=== PATIENT | female | born 1985 | race Caucasian/White ===

== ENCOUNTER → 2017-04-25 | Outpatient (CLI) | payer OTHER | LOC: FIMAGING 08:08 | PROVIDERS: ATTEND Advanced Practice Midwife | DX: Z34.82 Encounter for supervision of other normal pregnancy, second trimester (principal); Z3A.19 19 weeks gestation of pregnancy ==

== ENCOUNTER → 2017-05-30 | Outpatient (CLI) | payer OTHER | LOC: FIMAGING 09:48 | PROVIDERS: ATTEND Advanced Practice Midwife | DX: O44.02 Complete placenta previa NOS or without hemorrhage, second trimester (principal); Z3A.24 24 weeks gestation of pregnancy ==

== ENCOUNTER 2017-09-07 05:36 | Inpatient (IN) | payer OTHER ==
--- NOTE | 2017-09-07 00:11 | GHP ---
[f rep st] PREOP HISTORY AND PHYSICAL DATE OF ADMISSION: 09/07/2017 Patient slated for surgery on 09/07/2017, on the obstetric service. PREOPERATIVE NOTE: Patient is a 31-year-old G2, P1, who will be 39 weeks' gestation with an estimated due date of 09/14/2017, who presents for a scheduled repeat section. The patient had a history of a previous section and declines trial of labor. The patient has been counseled as to the risks and benefits of repeat and has signed the consent form. The patient is counseled as to the option also of doing the tubal ligation or salpingectomies for cancer risk reduction; however, at the time of preop, declines adding that to the consent form. The patient reports having good movement. Denies any contractions or bleeding or leakage of fluid. The patient has occasionally had headaches, but denies any visual changes or nausea, vomiting, or right upper quadrant pain. The patient's first was complicated by gestational hypertension, and the patient has had some borderline blood pressures in the last month. The patient has been screening blood pressures at home and has had some high 130s over high 80s. The patient had 1 blood pressure 158/92; however, a repeat was improved. The patient has had trace to negative proteinuria on urine dips and had a baseline 24-hour urine at the beginning of that showed slight elevation at 312 mg. The patient has been seen by [facility] since 8 weeks' gestation. 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 The patient was noted to have a placenta previa noted at 18 weeks. This was persistent at 23 weeks, but showed clearance at 31 weeks. The estimated weight was 39th percentile, and this dropped to the 21st percentile. The patient had an elevated 1-hour Glucola, but the 3-hour GTT was normal. LABS: Include maternal blood type is A positive with negative antibody screen. RPR nonreactive. Rubella immune. Hepatitis B surface antigen negative. HIV negative. Initial hematocrit was 39% which dropped to 34 % in mid , and the patient was advised to be on iron support. Urinalysis and culture were negative. Patient declined having Pap smear and gonorrhea and chlamydia testing done. The patient also denied first-trimester genetic testing as well as MSAFP. Again, the 1-hour Glucola was elevated, but the 3-hour GTT was normal. GBS testing at 36 weeks was negative. Standard panel for genetic tests as well as cystic fibrosis, SMA, and fragile X all were declined. PAST MEDICAL HISTORY: Patient does have abnormal Pap smears in the past. In 2010, it was abnormal, and the patient did not proceed with colposcopy, and the Pap smears have been normal since then. The patient also has a history of pyelonephritis at the age of 17. PAST SURGICAL HISTORY: odontectomy as teen, section in 2012. PAST OBSTETRIC HISTORY: In January 2013, viable male at 6 pounds 3 ounces, delivered at 36 weeks by section under spinal anesthesia. The patient reports that at 32 weeks in that , she developed -induced hypertension, and the plan was to deliver early. The patient does not recall the reasons behind having the primary section. During the hospital stay, the patient remembers being on magnesium sulfate. ALLERGIES: The patient is allergic to Ceclor causing a rash as a child. The patient reports she has been on cephalosporin as an adult with no problems. CURRENT MEDICATIONS: vitamins with iron. SOCIAL HISTORY: The patient is , lives with her and their son. The patient works in [employer] department. The patient is a nonsmoker. No alcohol or drug use. PHYSICAL EXAMINATION: GENERAL: At the time of the admission, the patient is a well-developed, well-nourished white female in no physical distress. VITAL SIGNS: The patient is clinically afebrile. Blood pressure is 138/74 with negative protein and glucose in the urine. The patient's weight 216 pounds. LUNGS: Clear to auscultation bilaterally. CARDIOVASCULAR: Regular rate and rhythm. NECK: No thyromegaly noted. ABDOMEN: Fundus measuring at 16 cm. heart tones are reassuring in the 150s. PELVIS: Deferred. EXTREMITIES: mild pedal edema. ASSESSMENT: Intrauterine at 39 weeks' gestation. History of a section and declines trial of labor. History of delivery due to gestational hypertension, and patient is showing some borderline BPs here near term. GBS culture was negative. PLAN: Will proceed with repeat section on the morning of 09/07/2017. Consent form has been signed. At this time, patient declining removal of fallopian tubes. Patient will receive preoperative antibiotics and have SCDs on her lower extremities for DVT prophylaxis. /[id number]/MODL MTDD
[2017-09-07] MEDS ORDERED: LR 500 ML IV ONE (06:24)
[2017-09-07] MEDS ORDERED: CLINDAMYCIN 900 MG/DEXTROSE 50 ML IV ONE (06:24)
[2017-09-07] MEDS ORDERED: CITRIC ACID/SODIUM CITRATE 30 ML UDCUP PO ONE (06:24)
[2017-09-07] MEDS ORDERED: LR 1,000 ML IV SCH (06:24)
[2017-09-07 06:36] LABS: PLATELET COUNT 202 10^3/uL (150-400)
--- NOTE | 2017-09-07 07:22 | PREANESOB ---
Obstetric Pre-Anesthesia Info - General Info Proposed Procedure: Repeat C Section : 2 Para: 0 DINORA: 09/14/17 Gestational Age: 39 week(s) and 0 day(s) - Info Status: Full Term Monitors: External FHR Baseline (bpm): 130 FHR Pattern: Reassuring - Labor Status Magnesium Sulfate in Use: No Indications for Current Section: Elective/Repeat Labor Epidural: No Anesthesia Allergies/Adverse Reactions: Allergy/AdvReac Type Severity Reaction Status Date / Time cefaclor [From [facility]] Allergy Verified 08/30/17 17:54 Visit Medications: Generic Name Dose Route Start Last Admin Trade Name Freq PRN Reason Stop Dose Admin Lactated Ringer's 1,000 mls @ 125 mls/hr 09/07/17 06:24 09/07/17 06:46 Lr IV 09/08/17 06:23 1,000 mls CONT ABDIRASHID Administration Discontinued Medications Generic Name Dose Route Start Last Admin Trade Name Freq PRN Reason Stop Dose Admin Citric Acid/Sodium Citrate 30 ml 09/07/17 06:24 Bicitra PO 09/07/17 06:25 ONCALL ONE Clindamycin Phosphate/Dextrose 50 mls @ 100 mls/hr 09/07/17 06:24 Cleocin 900 Mg (Premix) IV 09/07/17 06:53 ONCALL ONE Protocol Lactated Ringer's 500 mls @ 0 mls/hr 09/07/17 06:24 Lr IV 09/07/17 06:25 ONCE ONE As Directed - Anesthesia History Response to Local Anesthetics: Normal Anesthesia & Operative History: No Prior Problems Family Anesthesia History: Negative - Social History Substance Use/Abuse: Denies - Vital Signs Latest Vital Signs (Nursing): Temp Pulse Resp BP Pulse Ox 36.8 C 102 H 18 147/96 H 96 09/07/17 06:24 09/07/17 06:24 09/07/17 06:24 09/07/17 06:49 09/07/17 06:24 Blood Pressure: 146/94 Heart Rate: 100 Height/Weight (Nursing): Height 165.1 cm Weight 97.976 kg - Focused Exam Neck exam: FROM Mallampati Score: Class 1 Mouth exam: normal dental/mouth exam Pulmonary: no respiratory distress Cardiovascular: regular rate and rhythym Labs: 09/07/17 06:20 - Plan Consent Signed and on Chart: Yes
[2017-09-07] MEDS ORDERED: MISOPROSTOL 200 MCG TAB ONE (07:30)
[2017-09-07] MEDS ORDERED: OXYTOCIN 10 UNIT/ML VIAL ONE (07:30)
[2017-09-07] MEDS ORDERED: fentaNYL 100 MCG/2 ML INJ ONE (07:36)
[2017-09-07] MEDS ORDERED: morphINE PF 5 MG/10 ML INJ ONE (07:36)
--- NOTE | 2017-09-07 07:40 | PDHPUP ---
History & Physical Update H&P update statement: This history and physical update is based on an assessment of the patient which was completed after admission or registration (within 24 hours), but prior to the surgery/procedure. H&P update: changes noted (BPs have been elevated upon arrival, improving. 150s /100s but now 140s/90s. no JOHNSON or N/V, or RUQ pain. PIH labs normal. Pt dx now with PIH)
[2017-09-07] MEDS ORDERED: PHENYLEPHRINE HCL 100 MCG/ML SYR ONE (08:21)
[2017-09-07] MEDS ORDERED: DEXAMETHASONE 4 MG/ML VIAL ONE ×2 (08:22)
[2017-09-07] MEDS ORDERED: ONDANSETRON 4 MG/2 ML VIAL ONE (08:22)
[2017-09-07] MEDS ORDERED: OXYTOCIN 100 UNITS/10 ML VIAL ONE (08:22)
[2017-09-07] MEDS ORDERED: MAGNESIUM HYDROXIDE 30 ML UDCUP PO PRN (09:43)
[2017-09-07] MEDS ORDERED: BISACODYL 10 MG SUPP PR PRN (09:43)
[2017-09-07] MEDS ORDERED: LACTULOSE 20 GM/30 ML UDCUP PO PRN (09:43)
--- NOTE | 2017-09-07 09:47 | OBDEL ---
Info Type: Repeat Presentation at Delivery: Vertex L&D Analgesia/Anesthesia Type: Spinal (with duramorph) GBS+: No Intrapartum Medications: Generic Name Dose Route Start Last Admin Trade Name Freq PRN Reason Stop Dose Admin Lactated Ringer's 1,000 mls @ 125 mls/hr 09/07/17 06:24 09/07/17 06:46 Lr IV 09/08/17 06:23 1,000 mls CONT ABDIRASHID Administration Discontinued Medications Generic Name Dose Route Start Last Admin Trade Name Freq PRN Reason Stop Dose Admin Clindamycin Phosphate/Dextrose 50 mls @ 100 mls/hr 09/07/17 06:24 09/07/17 07 :31 Cleocin 900 Mg (Premix) IV 09/07/17 06:53 50 mls ONCALL ONE Administration Protocol - Infant Care Provider Information Systems Security Developer/CABINETMAKER SUPERVISOR: Amy Nunn Indications for Delivery: Elective, Gestational Hypertension Operative Report - Delivery Pre-op Diagnoses: IUP at 39 wks, PCS declines TRUID, undesired fertility Post-op Diagnoses: same, delivered History of Prior Section: Yes Number of Prior Sections: 1 Indications for Prior Section: Other (Specify) (gestation hypertension) Indications for Current Section: Elective/Repeat Procedure: Scheduled, Other (Specify) (bilateral salpingectomies) Surgeon: Domi Nick Worm Packer: Noe Oshea Anesthesiologist: Yusuf Sandhu Complications: None Findings: normal ut, tubes and ovaries - salpingectomies with 4 ties on left and 3 on right. - good hemostasis after uterine replacement. good uterine tone after delivery. clear fluid. placenta removed intact. vigorous baby after delivery with delay of cord clamp for 1 min. 3 F8 on second layer of uterus for good hemostasis. 2 F8 on rectus for 2-3 cm diastasis. Specimen(s)/Path: Fallopian Tube(s) IV Fluid (ml): 2,800 EBL: 800 [place] Data DINORA: 09/14/17 Gestational Age: 39 week(s) and 0 day(s) [place] Delivery Date: 09/07/17 Delivery Time: 08:39 Sex of : Female Score (1 Min): 8 Score (5 Min): 9 ICD10 Worksheet Patient Problems: Problems Problem Status Onset Status post bilateral salpingectomy Acute S/P repeat low transverse Acute
[2017-09-07] MEDS ORDERED: PHENYLEPHRINE HCL 100 MCG/ML SYR IVP PRN (10:00)
[2017-09-07] MEDS ORDERED: fentaNYL 100 MCG/2 ML INJ IVP PRN (10:00)
--- NOTE | 2017-09-07 10:00 | POSTANESTH ---
Post Anesthetic Evaluation Cardiovascular Status: Normal, Stable Respiratory Status: Normal, Stable Level of Consciousness/Mental Status: Can Participate in Eval Pain Control: Adequate, Prn Tx Ordered Nausea/Vomiting Control: Adequate, Prn Tx Ordered Complications Possibly Related to Anesthesia: None Noted
[2017-09-07] MEDS ORDERED: ONDANSETRON 4 MG/2 ML VIAL IVP PRN (10:01)
[2017-09-07] MEDS ORDERED: NALOXONE HCL 0.4 MG/ML INJ IVP PRN (10:01)
[2017-09-07] MEDS: KETOROLAC 30 MG/1 ML SDV IVP SCH ×2 (14:36→20:34)
--- NOTE | 2017-09-07 18:39 | OBPP ---
Progress Note Assessment/Plan: Assessment: POD 0 s/p RCS, BS gest HTN Plan: Routine care 09/07/17 18:35 Subjective/ Course: 09/07/17 18:36 Pt doing well. Pain controlled with toradol. bld is light. has been OOB once and dayana fine. dayana liquids well. Baby has tried to latch well. Objective: 09/07/17 06:20 09/07/17 07:10 Patient ABO/Rh A POSITIVE 09/07/17 06:20 Uric Acid 3.9 mg/dL (2.5-6.8) 09/07/17 07:10 Total Bilirubin 0.5 mg/dL (0.1-1.4) 09/07/17 07:10 Conjugated Bilirubin 0.2 mg/dL (0.0-0.5) 09/07/17 07:10 Unconjugated Bilirubin 0.3 mg/dL (0.0-1.1) 09/07/17 07:10 AST 15 IU/L (14-46) 09/07/17 07:10 ALT 21 IU/L (9-52) 09/07/17 07:10 Lactate Dehydrogenase 343 IU/L (313-618) 09/07/17 07:10 Temp Pulse Resp BP Pulse Ox 36.7 C 78 18 128/77 H 96 09/07/17 15:30 09/07/17 15:30 09/07/17 16:30 09/07/17 15:30 09/07/17 18:00 Uterine Position/Fundal Height: Umbilicus -1 Uterine Tone: Firm Physical Exam - Physical Exam Abdomen: non-tender (approp post op tenderness), soft, dressing (CDI) Extremities: non-tender, pedal edema (mild) Skin: normal color, warm/dry Neuro/Psych: alert, normal mood/affect
[2017-09-07] MEDS: SENNOSIDES/DOCUSATE SODIUM TAB PO SCH (20:34)
[2017-09-08] MEDS: KETOROLAC 30 MG/1 ML SDV IVP SCH ×2 (02:28→10:43)
[2017-09-08] MEDS: IBUPROFEN 600 MG TAB PO PRN ×3 (08:57→23:04)
[2017-09-08] MEDS: SENNOSIDES/DOCUSATE SODIUM TAB PO SCH ×2 (08:58→19:54)
[2017-09-08] MEDS ORDERED: KETOROLAC 30 MG/1 ML SDV IVP SCH (09:00)
--- NOTE | 2017-09-08 13:02 | OBPP ---
Progress Note Assessment/Plan: Assessment: POD1 s/p scheduled RLTCS and BS. Routine cares, doing great. Likely home tomorrow. Rh pos, Rubella immune. JM Subjective/ Course: 09/07/17 18:36 Pt doing well. Pain controlled with toradol. bld is light. has been OOB once and dayana fine. dayana liquids well. Baby has tried to latch well. 09/08/17 17:07 Swetha is doing great this AM - no issues. Pain well controlled with just ibuprofen, no narcotics currently. Incision still bandaged. BF going great. Feels like this recovery is going much better than last time. Objective: 09/08/17 01:20 09/07/17 07:10 Patient ABO/Rh A POSITIVE 09/07/17 06:20 Uric Acid 3.9 mg/dL (2.5-6.8) 09/07/17 07:10 Total Bilirubin 0.5 mg/dL (0.1-1.4) 09/07/17 07:10 Conjugated Bilirubin 0.2 mg/dL (0.0-0.5) 09/07/17 07:10 Unconjugated Bilirubin 0.3 mg/dL (0.0-1.1) 09/07/17 07:10 AST 15 IU/L (14-46) 09/07/17 07:10 ALT 21 IU/L (9-52) 09/07/17 07:10 Lactate Dehydrogenase 343 IU/L (313-618) 09/07/17 07:10 Temp Pulse Resp BP Pulse Ox 36.3 C 76 16 129/81 H 95 09/08/17 08:32 09/08/17 08:32 09/08/17 08:32 09/08/17 08:32 09/08/17 08:32 Uterine Position/Fundal Height: At Umbilicus Uterine Tone: Firm (Incision bandaged, no shadowing)
[2017-09-08] MEDS: HYDROCODONE/APAP 5/325 TAB PO PRN ×2 (14:25→19:54)
[2017-09-08] MEDS: POLYETHYLENE GLYCOL 3350 17 GM PKT PO PRN (17:20)
[2017-09-08] MEDS: SIMETHICONE 80 MG TAB CHEW PO SCH ×2 (18:17→23:04)
[2017-09-09] MEDS: IBUPROFEN 600 MG TAB PO PRN ×2 (05:11→13:51)
[2017-09-09 07:45] VITALS: BP 133/85
[2017-09-09] MEDS: HYDROCODONE/APAP 5/325 TAB PO PRN ×2 (09:57→13:52)
[2017-09-09] MEDS: SENNOSIDES/DOCUSATE SODIUM TAB PO SCH (09:58)
[2017-09-09] MEDS: POLYETHYLENE GLYCOL 3350 17 GM PKT PO PRN (09:59)
[2017-09-09] MEDS: SIMETHICONE 80 MG TAB CHEW PO SCH ×2 (09:59→13:52)
--- NOTE | 2017-09-09 13:01 | OBPP ---
Progress Note Assessment/Plan: Assessment: POD 2 s/p RCS, BS gest HTN DESIRES D/C Plan: Routine care D/C HOME 09/07/17 18:35 09/09/17 12:59 Subjective/ Course: 09/07/17 18:36 Pt doing well. Pain controlled with toradol. bld is light. has been OOB once and dayana fine. dayana liquids well. Baby has tried to latch well. 09/08/17 17:07 Swetha is doing great this AM - no issues. Pain well controlled with just ibuprofen, no narcotics currently. Incision still bandaged. BF going great. Feels like this recovery is going much better than last time. 09/09/17 12:59 Pt doing well. states pain well controlled with ibu and occas Export. urinating fine. amb well. baby has been latching fine. eating normally and hydrating well. Objective: 09/08/17 01:20 09/07/17 07:10 Patient ABO/Rh A POSITIVE 09/07/17 06:20 Uric Acid 3.9 mg/dL (2.5-6.8) 09/07/17 07:10 Total Bilirubin 0.5 mg/dL (0.1-1.4) 09/07/17 07:10 Conjugated Bilirubin 0.2 mg/dL (0.0-0.5) 09/07/17 07:10 Unconjugated Bilirubin 0.3 mg/dL (0.0-1.1) 09/07/17 07:10 AST 15 IU/L (14-46) 09/07/17 07:10 ALT 21 IU/L (9-52) 09/07/17 07:10 Lactate Dehydrogenase 343 IU/L (313-618) 09/07/17 07:10 Temp Pulse Resp BP Pulse Ox 36.2 C 63 16 133/85 H 95 09/09/17 07:44 09/09/17 07:44 09/09/17 07:44 09/09/17 07:44 09/09/17 07:44 Uterine Position/Fundal Height: Umbilicus -2 Uterine Tone: Firm Physical Exam - Physical Exam Abdomen: non-tender (approp post op tenderness), soft, other (incision CDI) Extremities: non-tender, pedal edema (moderate) Skin: normal color, warm/dry Neuro/Psych: alert, normal mood/affect
--- NOTE | 2017-09-09 13:10 | OBGCSDC ---
General Delivery Information - General Info : 2 Para: 2 Abortions: 0 Type: Repeat L&D Analgesia/Anesthesia Type: Spinal Admission Date: 09/07/17 Labs: Patient ABO/Rh A POSITIVE 09/07/17 06:20 Hct 27.8 % (38.0-47.0) L 09/08/17 01:20 - Hospital Course : 09/07/17 18:36 Pt doing well. Pain controlled with toradol. bld is light. has been OOB once and dayana fine. dayana liquids well. Baby has tried to latch well. 09/08/17 17:07 Swetha is doing great this AM - no issues. Pain well controlled with just ibuprofen, no narcotics currently. Incision still bandaged. BF going great. Feels like this recovery is going much better than last time. 09/09/17 12:59 Pt doing well. states pain well controlled with ibu and occas Cheraw. urinating fine. amb well. baby has been latching fine. eating normally and hydrating well. - Delivery Providers Surgeon: Domi Nick Supervisor Boilermaking Shop: Noe Oshea Anesthesiologist: Yusuf Sandhu - Delivery Number of Prior Sections: 1 Indications for Current Section: Elective/Repeat Surgical Procedures: Scheduled, Other (Specify) (bilateral salpingectomies) Intra-op Complications: None EBL: 800 [place] Data DINORA: 09/14/17 Gestational Age: 39 week(s) and 2 day(s) [place] Delivery Date: 09/07/17 Delivery Time: 08:39 Sex of : Female Weight (gm): 3090 g Score (1 Min): 8 Score (5 Min): 9 Discharge Information - Discharge Information Prescriptions: Hydrocodone/APAP 5/325 [Cheraw 5/325 (*)] 1 - 2 tab PO Q4HRS PRN #20 tab PRN Reason: Pain, Moderate Condition: Good Instruction/Follow Up: See Instruction Sheet, Two Weeks, Four Weeks, Six Weeks
[2017-09-09] MEDS ORDERED: IRON POLYSAC/IRON HEME 28 MG TAB PO SCH (21:00)
== END 2017-09-09 14:00 | disposition home or self-care (01) | DRG 766 ==
LOC: FLD 05:36 → FOB 11:45
PROVIDERS: ADMIT Obstetrics & Gynecology; ATTEND Obstetrics & Gynecology
PROC: 10D00Z1 Extraction of Products of Conception, Low, Open Approach (ICD-10-PCS; principal; 2017-09-07)
PROC: 0UT70ZZ Resection of Bilateral Fallopian Tubes, Open Approach (ICD-10-PCS; principal; 2017-09-07)
DX: O34.219 Maternal care for unspecified type scar from previous cesarean delivery (principal); Z37.0 Single live birth; Z3A.39 39 weeks gestation of pregnancy; O13.4 Gestational [pregnancy-induced] hypertension without significant proteinuria, complicating childbirth
CPT/HCPCS: J1100; J1885; J2274; J2370; J2405; J2590; J3010